=== PATIENT | male | born 1995 | race Asian ===

== ENCOUNTER 2019-01-02 12:25 | Emergency (ER) | payer OTHER ==
[~2019-01-02] VITALS: Ht 182.9 cm; Wt 63.0 kg
[2019-01-02 12:37] VITALS: TEMP 99.5
[2019-01-02 13:54] VITALS: BP 121/74
== END 2019-01-02 13:54 | disposition home or self-care (01) ==
LOC: ED 12:25
DX: B34.9 Viral infection, unspecified (principal)
CPT/HCPCS: 87651; 99283